=== PATIENT | male | born 1990 | race African-American/Black ===

== ENCOUNTER 2019-11-13 19:05 | Emergency (ER) | payer SELFPAY ==
[~2019-11-13] VITALS: Ht 185.4 cm; Wt 81.0 kg
--- NOTE | 2019-11-13 20:04 | PHYS DOC ---
General Adult EDM: Chief Complaint: BACK PAIN - NO INJURY HPI: HPI: Patient is a 28 year old male who presents with complaints of needing to have a stent removed. He reports that his been 5 days beyond where he was supposed to have it taken out already. He missed his appointment and is here asking if we can remove it. He denies any fever chills and complains that he has mild back pain that is unchanged from previous. He does complain of some dysuria but reports that this is also not new. He will try to take out the stent on his own but when he yanked on the string it broke and so now he does not want to touch it. Otherwise he has no other complaints including chest pain, shortness of breath, vomiting, diarrhea or abdominal pain. Review of Systems: Review of Systems: Constitutional: Denies fever or chills. [] Eyes: Denies change in visual acuity. [] HENT: Denies nasal congestion or sore throat. [] Respiratory: Denies cough or shortness of breath. [] Cardiovascular: Denies chest pain or edema. [] GI: Denies abdominal pain, nausea, vomiting, bloody stools or diarrhea. [] : See HPI. [] Musculoskeletal: See HPI. [] Integument: Denies rash. [] Neurologic: Denies headache, focal weakness or sensory changes. [] Endocrine: Denies polyuria or polydipsia. [] Lymphatic: Denies swollen glands. [] Psychiatric: Denies depression or anxiety. [] Heart Score: Risk Factors: Risk Factors: DM, Current or recent (<one month) smoker, HTN, HLP, family history of CAD, obesity. Risk Scores: Score 0 - 3: 2.5% MACE over next 6 weeks - Discharge Home Score 4 - 6: 20.3% MACE over next 6 weeks - Admit for Clinical Observation Score 7 - 10: 72.7% MACE over next 6 weeks - Early Invasive Strategies Physical Exam: PE: Constitutional: Well developed, well nourished, no acute distress, non-toxic appearance. [] HENT: Normocephalic, atraumatic, bilateral external ears normal, oropharynx moist, no oral exudates, nose normal. [] Eyes: PERRLA, EOMI, conjunctiva normal, no discharge. [] Neck: Normal range of motion, no tenderness, supple, no stridor. [] Cardiovascular:Heart rate regular rhythm, no murmur [] Lungs & Thorax: Bilateral breath sounds clear to auscultation [] Abdomen: Bowel sounds normal, soft, no tenderness, no masses, no pulsatile masses. : Circumcised penis, normal testes, string in the urethra. [] Skin: Warm, dry, no erythema, no rash. [] Back: No tenderness, no CVA tenderness. [] Extremities: No tenderness, no cyanosis, no clubbing, ROM intact, no edema. [] Neurologic: Alert and oriented X 3, normal motor function, normal sensory function, no focal deficits noted. [] Psychologic: Affect normal, judgement normal, mood normal. [] EKG: EKG: [] Radiology/Procedures: Radiology/Procedures: [] Course & Med Decision Making: Course & Med Decision Making Pertinent Labs and Imaging studies reviewed. (See chart for details) 2002-the patient was seen and examined. I remove the ureteral stent. I grab the string and gently remove the stent. There was no resistance or pain. The stent was removed without any difficulty. The patient tolerated procedure well. I discussed reasons to return, treatment plan and need for follow-up. [] Dragon Disclaimer: Dragon Disclaimer: This electronic medical record was generated, in whole or in part, using a voice recognition dictation system. Departure Departure Impression: Primary Impression: Nephrolithiasis Disposition: 01 HOME, SELF-CARE Condition: IMPROVED Referrals: NO PCP (PCP) Patient Instructions: Ureteral Stent Additional Instructions: Return for fever, persistent dysuria or discomfort with urination, change in pain. Justicifation of Admission Dx: Justifications for Admission: Justification of Admission Dx: N/A MANDI LI MD Nov 13, 2019 20:04
[2019-11-13 20:13] LABS: BILIRUBIN,URINE NEGATIVE (NEG); CLARITY,URINE CLOUDY; COLOR,URINE AMBER; NITRITE,URINE NEGATIVE (NEG); PH,URINE 6.5 (<5.0-8.0); PROTEIN,URINE >=300 mg/dL (NEG-TRACE); UROBILINOGEN,URINE 0.2 mg/dL (0.2 mg/dL)
[2019-11-13 20:19] LABS: BACTERIA,URINE 0 /HPF (0-FEW)
[2019-11-13 20:21] LABS: RBC,URINE >40 /HPF (0-2)
[2019-11-13 21:02] VITALS: BP 139/77
== END 2019-11-13 21:03 | disposition home or self-care (01) ==
LOC: ER 19:05
DX: N20.0 Calculus of kidney (principal)
CPT/HCPCS: 53899; 81001; 87086; 99283